=== PATIENT | female | born 1965 | race Caucasian/White ===

== ENCOUNTER 2017-08-16 09:56 | Emergency (ER) | payer MEDICAID ==
--- NOTE | 2017-08-16 12:26 | EDM.PDOC ---
ED HPI GENERAL MEDICAL PROBLEM - General Stated Complaint: RT EYE SWOLLEN Time Seen by Provider: 08/16/17 09:56 Source of Information: Reports: Patient, Family History Limitations: Reports: No Limitations - History of Present Illness INITIAL COMMENTS - FREE TEXT/NARRATIVE: 51 y.o.w.f was seen in the clinic and sent to the ed due to right facial swelling. She was seen last thursday at the clinic for same and received 1 gm of rocephine and was sent home with bactrim. Pt came back to the clinic today for recheck. Pt had a tooth pulled at her left side last week and thinks her symptoms are improving. No N/V/D no Dizziness, no trauma. BP 129/99 pulse 63 Temp 98.1 Pulse ox 99% on RA Onset Date: 08/07/17 Onset Time: 08:00 Duration: Day(s):, Intermittent Location: Reports: Face Quality: Reports: Burning, Dull Severity: Mild Improves with: Reports: None, Medication Worsens with: Reports: Movement Context: Reports: Other (redness of right face) Associated Symptoms: Reports: No Other Symptoms - Related Data Allergies Allergy/AdvReac Type Severity Reaction Status Date / Time No Known Allergies Allergy Verified 08/16/17 12:26 ED ROS GENERAL - Review of Systems Review Of Systems: See Below Constitutional: Reports: No Symptoms HEENT: Reports: No Symptoms Respiratory: Reports: No Symptoms Cardiovascular: Reports: No Symptoms Endocrine: Reports: No Symptoms GI/Abdominal: Reports: No Symptoms : Reports: No Symptoms Musculoskeletal: Reports: No Symptoms Skin: Reports: Rash (right face) Neurological: Reports: No Symptoms Psychiatric: Reports: No Symptoms Hematologic/Lymphatic: Reports: No Symptoms Immunologic: Reports: No Symptoms ED EXAM, SKIN/RASH Exam: See Below Exam Limited By: No Limitations General Appearance: Alert, WD/WN, No Apparent Distress Eye Exam: Bilateral Eye: Normal Inspection Ears: Normal External Exam, Normal Canal Nose: Normal Inspection Throat/Mouth: Normal Inspection, Normal Lips Head: Atraumatic, Normocephalic Neck: Normal Inspection Respiratory/Chest: No Respiratory Distress, Lungs Clear, Normal Breath Sounds, No Accessory Muscle Use Cardiovascular: Normal Peripheral Pulses, Regular Rate, Rhythm, No Edema, No Gallop, No JVD Peripheral Pulses: 1+: Radial (L) GI/Abdominal: Normal Bowel Sounds, Soft, Non-Tender, No Organomegaly, No Abnormal Bruit, No Mass, Pelvis Stable (Female) Exam: Deferred Rectal (Female) Exam: Deferred Back Exam: Normal Inspection, Full Range of Motion Extremities: Normal Inspection, Normal Range of Motion, Non-Tender, No Pedal Edema, Normal Capillary Refill Neurological: Alert, Oriented, CN II-XII Intact, Normal Cognition, Normal Gait, No Motor/Sensory Deficits Characteristics: Erythematous (right face) Lymphatic: No Adenopathy Course - Vital Signs Text/Narrative:: 51 y.o.w.f was seen in the [facility] clinic and sent to the ed due to right facial swelling. She was seen last thursday at the clinic for same and received 1 gm of rocephine and was sent home with bactrim. Pt came back to the clinic today for recheck. Pt had a tooth pulled at her left side last week and thinks her symptoms are improving. No N/V/D no Dizziness, no trauma. BP 129/99 pulse 63 Temp 98.1 Pulse ox 99% on RA PE: 51 y.o.w.f with facial swelling Imaging: Facial cellulitis Labs: Not indicated Impression: Facial Cellulitis Tx: Pt is taking Bactrim Reexam: As per Pt, symptoms have improved Plan: D/C with instructions - Orders/Labs/Meds Orders: Active Orders 24 hr Category Date Time Status Max Facial Sinus wo Cont [CT] Stat Exams 08/16/17 10:15 Taken Departure - Departure Time of Disposition: 12:25 Disposition: Home, Self-Care 01 Condition: Good Clinical Impression: Facial cellulitis - Discharge Information Instructions: Cellulitis, Adult Referrals: Stef Rdz PA-C [Primary Care Provider] - Additional Instructions: Please continue youe current meds, please f/u, come back if your symptoms get worse acutely - My Orders Last 24 Hours: My Active Orders 08/16/17 10:15 Max Facial Sinus wo Cont [CT] Stat - Assessment/Plan Last 24 Hours: My Active Orders 08/16/17 10:15 Max Facial Sinus wo Cont [CT] Stat
== END 2017-08-16 12:33 | disposition home or self-care (01) ==
LOC: FB.ED 09:56
DX: L03.211 Cellulitis of face (principal)
CPT/HCPCS: 70486; 99283

== ENCOUNTER 2018-04-28 15:07 | Emergency (ER) | payer MEDICAID ==
[2018-04-28] MEDS ORDERED: Codeine/guaiFENesin 100mg-10 MG/5 ML Soln 118 ML Bottle PO ONE (15:08)
[2018-04-28] MEDS ORDERED: Albuterol/Ipratropium 3.0-0.5 MG/3 ML Neb Soln NEB ONE (15:20)
[2018-04-28] MEDS ORDERED: predniSONE 20 MG Tab PO ONE (15:23)
--- NOTE | 2018-04-28 15:27 | EDM.PDOC ---
ED HPI GENERAL MEDICAL PROBLEM - General Stated Complaint: SOB Time Seen by Provider: 04/28/18 15:07 Source of Information: Reports: Patient History Limitations: Reports: Respiratory Distress - History of Present Illness INITIAL COMMENTS - FREE TEXT/NARRATIVE: 52 y.o.w.f -smoker- H/O asthma, came to the ed because of non prod cough and SOB. C/P with deep inspirations, No trauma. Pt was exposed to "sick people" in the past few days. No N/V/D or any other acute medical issues. BP 125/77 RR 20 Pulse ox 94% on RA Pulse 81 Temp 36.8 Onset Date: 04/26/18 Onset Time: 10:00 Duration: Getting Worse, Intermittent Location: Reports: Chest Quality: Reports: Dull, Same as Previous Episode Severity: Moderate Improves with: Reports: Rest Worsens with: Reports: Movement Context: Reports: Sick Contact Associated Symptoms: Reports: Cough (with SOB) - Related Data Allergies Allergy/AdvReac Type Severity Reaction Status Date / Time No Known Allergies Allergy Verified 04/28/18 15:16 Home Meds: Home Meds Albuterol [IJD: Albuterol HFA] 1 - 2 puff INH Q4H PRN 08/16/17 [History] Albuterol/Ipratropium [DuoNeb 3.0-0.5 MG/3 ML] 1 ampule INH Q6H PRN 08/16/17 [ History] FLUoxetine HCl [Prozac] 60 mg PO DAILY 08/16/17 [History] Fluticasone/Salmeterol [Advair 250-50] 1 puff INH BID 08/16/17 [History] QUEtiapine [SEROquel] 100 mg PO DAILY 08/16/17 [History] atorvaSTATin [Lipitor] 30 mg PO BEDTIME 08/16/17 [History] buPROPion [Wellbutrin] 75 mg PO BID 08/16/17 [History] lamoTRIgine [Lamictal] 200 mg PO BEDTIME 08/16/17 [History] traZODone HCl [Trazodone HCl] 100 mg PO BEDTIME 08/16/17 [History] Azithromycin [Zithromax] 1 gm PO DAILY 04/28/18 [History] Codeine/guaiFENesin [Robitussin AC] 5 ml PO Q6H PRN #1 bottle 04/28/18 [Rx] predniSONE 20 mg PO WITHBREAKFAST #4 tab 04/28/18 [Rx] predniSONE [Prednisone] 10 mg PO BID 04/28/18 [History] Past Medical History Musculoskeletal History: Reports: Other (See Below) Other Musculoskeletal History: r wrist fx - Past Surgical History HEENT Surgical History: Reports: Tonsillectomy GI Surgical History: Reports: Appendectomy, Other (See Below) Other GI Surgeries/Procedures: bowl obstuction Female Surgical History: Reports: Hysterectomy Social & Family History - Family History Family Medical History: Noncontributory - Caffeine Use Caffeine Use: Reports: Coffee, Tea ED ROS GENERAL - Review of Systems Review Of Systems: See Below Constitutional: Reports: No Symptoms HEENT: Reports: No Symptoms Respiratory: Reports: Shortness of Breath, Pleuritic Chest Pain Cardiovascular: Reports: No Symptoms Endocrine: Reports: No Symptoms GI/Abdominal: Reports: No Symptoms : Reports: No Symptoms Musculoskeletal: Reports: No Symptoms Skin: Reports: No Symptoms Neurological: Reports: No Symptoms Psychiatric: Reports: No Symptoms Hematologic/Lymphatic: Reports: No Symptoms Immunologic: Reports: No Symptoms ED EXAM, GENERAL - Physical Exam Exam: See Below Exam Limited By: Respiratory Distress General Appearance: Alert, WD/WN, Mild Distress, Moderate Distress Eye Exam: Bilateral Eye: Normal Inspection Ears: Normal External Exam Ear Exam: Bilateral Ear: Auricle Normal Nose: Normal Inspection, Normal Mucosa, No Blood Throat/Mouth: Normal Inspection, Normal Lips, Normal Voice, No Airway Compromise Head: Atraumatic, Normocephalic Neck: Normal Inspection, Supple, Non-Tender, Full Range of Motion Respiratory/Chest: Respiratory Distress, Decreased Breath Sounds, Rhonchi, Wheezing Cardiovascular: Normal Peripheral Pulses Peripheral Pulses: 2+: Brachial (L) GI/Abdominal: Normal Bowel Sounds, Soft, Non-Tender, No Organomegaly, No Abnormal Bruit, No Mass, Pelvis Stable (Female) Exam: Deferred Rectal (Female) Exam: Deferred Back Exam: Normal Inspection, Full Range of Motion Extremities: Normal Inspection, Normal Range of Motion, Non-Tender, No Pedal Edema, Normal Capillary Refill Neurological: Alert, Oriented, CN II-XII Intact, Normal Cognition, Normal Gait, No Motor/Sensory Deficits Psychiatric: Normal Affect, Normal Mood Skin Exam: Warm, Dry, Intact, Normal Color, No Rash Lymphatic: No Adenopathy Course - Vital Signs Text/Narrative:: 52 y.o.w.f -smoker- H/O asthma, came to the ed because of non prod cough and SOB. C/P with deep inspirations, No trauma. Pt was exposed to "sick people" in the past few days. No N/V/D or any other acute medical issues. BP 125/77 RR 20 Pulse ox 94% on RA Pulse 81 Temp 36.8 PE: WNWD W F with cold symptoms, expiratory wheezes and a dry cough. Imaging: CXR: NAD labs: CBC: WBC 16.4 BMP: BUN 12, Cr. 1.3 GFR 48 Lactic acid 2.6 Impression: Viral Syndrome, Asthma, chronic bronchitis Tx: Duoneb, Prednison, Codeine cough meds Reexam: Improved Plan: D/C with instructions Last Recorded V/S: Last Vital Signs Temp 36.6 C 04/28/18 17:40 Pulse 66 04/28/18 17:40 Resp 20 04/28/18 17:40 BP 125/71 04/28/18 17:40 Pulse Ox 97 04/28/18 17:40 - Orders/Labs/Meds Orders: Active Orders 24 hr Category Date Time Status Chest 2V [CR] Stat Exams 04/28/18 15:23 Taken Labs: Laboratory Tests 04/28/18 04/28/18 04/28/18 Range/Units 15:40 15:40 15:40 WBC 16.8 H (4.5-12.0) X10-3/uL RBC 4.45 (3.23-5.20) x10(6)uL Hgb 12.9 (11.5-15.5) g/dL Hct 37.8 (30.0-51.3) % MCV 85.0 (80-96) fL MCH 28.9 (27.7-33.6) pg MCHC 34.0 (32.2-35.4) g/dL RDW 14.8 (11.5-15.5) % Plt Count 371 H (125-369) X10(3)uL MPV 8.1 (7.4-10.4) fL Neut % (Auto) 76.0 (46-82) % Lymph % (Auto) 14.8 (13-37) % [place] % (Auto) 7.6 (4-12) % Eos % (Auto) 1 (1.0-5.0) % Baso % (Auto) 1 (0-2) % Neut # (Auto) 12.7 H (1.6-8.3) # Lymph # (Auto) 2.5 (0.6-5.0) # [place] # (Auto) 1.3 (0.0-1.3) # Eos # (Auto) 0.2 (0.0-0.8) # Baso # (Auto) 0.1 (0.0-0.2) # Sodium 135 (135-145) mmol/L Potassium 3.7 (3.5-5.3) mmol/L Chloride 97 L (100-110) mmol/L Carbon Dioxide 22 (21-32) mmol/L BUN 11 (7-18) mg/dL Creatinine 1.3 H (0.55-1.02) mg/dL Est Cr Clr Drug Dosing TNP Estimated GFR (MDRD) 43 L (>60) BUN/Creatinine Ratio 8.5 L (9-20) Glucose 108 (80-116) mg/dL Lactic Acid 2.6 H (0.4-2.2) mmol/L Calcium 9.2 (8.6-10.2) mg/dL Meds: Medications Discontinued Medications Generic Name Dose Route Start Last Admin Trade Name Freq PRN Reason Stop Dose Admin Albuterol/Ipratropium 3 ml 04/28/18 15:20 04/28/18 15:29 Duoneb 3.0-0.5 Mg/3 Ml NEB 04/28/18 15:21 3 ml ONETIME ONE Administration Guaifenesin/Codeine Phosphate 5 ml 04/28/18 16:46 04/28/18 17:23 Robitussin Ac PO 04/28/18 16:47 5 ml ONETIME ONE Administration Prednisone 20 mg 04/28/18 15:23 04/28/18 15:40 Prednisone PO 04/28/18 15:24 20 mg ONETIME ONE Administration Departure - Departure Time of Disposition: 17:37 Disposition: Home, Self-Care 01 Condition: Good Clinical Impression: Asthma, Viral syndrome, Cough in adult - Discharge Information Prescriptions: Codeine/guaiFENesin [Robitussin AC] 5 ml PO Q6H PRN #1 bottle PRN Reason: Cough predniSONE 20 mg PO WITHBREAKFAST #4 tab Referrals: Stef Rdz PA-C [Primary Care Provider] - Forms: ED Department Discharge Additional Instructions: Please keep your body warm, take cough medicine, Motrin for pain, Bendrayl (50 mg) for shivering and as sleep inducer, Albuterol nebs at home and prednisone as recommended. Please follow up, come back if your symptoms get worse acutely - My Orders Last 24 Hours: My Active Orders 04/28/18 15:23 Chest 2V [CR] Stat - Assessment/Plan Last 24 Hours: My Active Orders 04/28/18 15:23 Chest 2V [CR] Stat
[2018-04-28] MEDS ORDERED: Codeine/guaiFENesin 100-10 MG/5 ML Syrup 5 ML Cup PO ONE (16:46)
== END 2018-04-28 17:55 | disposition home or self-care (01) ==
LOC: FB.ED 15:07
DX: J45.909 Unspecified asthma, uncomplicated (principal); B34.9 Viral infection, unspecified; J42 Unspecified chronic bronchitis
CPT/HCPCS: 36415; 71046; 80048; 83605; 85025; 87804; 87807; 94640; 99283; A9270; J7620-GY

== ENCOUNTER 2018-08-04 09:08 | Day surgery (SDC) | payer MEDICAID ==
[2018-08-04] MEDS ORDERED: Propofol 200 MG/20 ML SDV IV ONE (09:09)
[2018-08-04] MEDS ORDERED: Lidocaine 2% 100 MG/5 ML Syringe IVPUSH ONE (09:09)
[2018-08-04] MEDS ORDERED: Lactated Ringers 1,000 ML IV SCH (09:45)
--- NOTE | 2018-08-04 10:39 | PCM.OPNOTE ---
- General Post-Op/Procedure Note Date of Surgery/Procedure: 08/04/18 Operative Procedure(s): egd with bx Findings: gastroduodenitis irregular z line Pre Op Diagnosis: dysphagia Post-Op Diagnosis: gastroduodenitis. irregular z line Primary Surgeon: Ant Jasmine Anesthesia Provider: Preet Bruno Pathology: esophagus, stomach and duodenum Complications: None Condition: Good Free Text/Narrative:: see dictation
--- NOTE | 2018-08-04 17:58 | OR ---
DATE OF OPERATION: 08/04/2018 SURGEON: Ant Jasmine MD PROCEDURE PERFORMED: Esophagogastroduodenoscopy with cold forceps biopsy. PREOPERATIVE DIAGNOSIS: Dysphagia. POSTOPERATIVE DIAGNOSIS: Gastroduodenitis and irregular Z-line. INDICATIONS FOR PROCEDURE: This is a 52-year-old white female referred with the above-mentioned complaints. She was offered and accepted an upper endoscopy. DESCRIPTION OF OPERATION: After an excellent IV sedation was administered, bite block was inserted. Flexible endoscope was passed without difficulty down the patient's esophagus into the stomach. Stomach was insufflated. Scope passed through the pylorus, second portion of the duodenum, and slowly withdrawn. The following findings were noted. First portion of the duodenum demonstrated duodenitis. Biopsies were obtained, photo as well. Stomach, some mild gastritis, especially in the area of the antrum. Biopsies were taken. GE junction measured at approximately 38 cm. There was a slight irregularity to the Z-line noted. Biopsies were taken. Remainder of the esophageal exam was unremarkable. Stomach was deflated. Scope was removed. The patient tolerated the procedure well. Results by letter. /[id number] /[place]
== END 2018-08-04 11:35 | disposition home or self-care (01) ==
LOC: FB.SDS 09:08
PROVIDERS: ATTEND Surgery
DX: K29.50 Unspecified chronic gastritis without bleeding (principal); K22.8 Other specified diseases of esophagus; K21.9 Gastro-esophageal reflux disease without esophagitis; E78.5 Hyperlipidemia, unspecified; J44.9 Chronic obstructive pulmonary disease, unspecified; F31.9 Bipolar disorder, unspecified; F17.210 Nicotine dependence, cigarettes, uncomplicated; G47.33 Obstructive sleep apnea (adult) (pediatric); Z79.1 Long term (current) use of non-steroidal anti-inflammatories (NSAID); Z79.899 Other long term (current) drug therapy
CPT/HCPCS: 43239; 88305; 88342; J2001; J2704; J7120

== ENCOUNTER 2019-07-19 06:26 | Day surgery (SDC) | payer MEDICAID ==
[2019-07-19] MEDS ORDERED: Glycopyrrolate 0.2 MG/ML 5 ML MDV IV ONE (06:27)
[2019-07-19] MEDS ORDERED: Propofol 200 MG/20 ML SDV IV ONE (06:27)
[2019-07-19] MEDS ORDERED: Lidocaine 1% PF 2 ML SDV INJECT ONE (06:27)
[2019-07-19] MEDS ORDERED: Lactated Ringers 1,000 ML IV SCH (06:45)
[2019-07-19] MEDS ORDERED: Sodium Chloride 0.9% 10 ML Syringe FLUSH PRN (06:45)
--- NOTE | 2019-07-19 09:02 | PCM.OPNOTE ---
- General Post-Op/Procedure Note Date of Surgery/Procedure: 07/19/19 Operative Procedure(s): c scope with bx Findings: normal with bx Pre Op Diagnosis: diarrhea possible ibd Post-Op Diagnosis: nl exam Anesthesia Technique: MAC Primary Surgeon: Ant Jasmine Anesthesia Provider: Preet Bruno Pathology: random bx Complications: None Condition: Good Free Text/Narrative:: see dictation
--- NOTE | 2019-07-19 10:39 | OR ---
DATE OF OPERATION: 07/19/2019 SURGEON: Ant Jasmine MD PROCEDURE PERFORMED: Colonoscopy with random biopsies. PREOPERATIVE DIAGNOSIS: History of diarrhea and abnormal CT scan. POSTOPERATIVE DIAGNOSIS: Normal exam. INDICATIONS FOR PROCEDURE: This is a 53-year-old white female who is referred with a history of diarrhea. Apparently, had undergone a CT scan, and there were some CT scan findings suggestive of possible Crohn disease or other inflammatory bowel disease. She was offered and accepted colonoscopy on the basis of this diagnosis. DESCRIPTION OF OPERATION: After an excellent IV sedation was administered, digital rectal exam was performed. No marked abnormality was noted. The flexible colonoscope was inserted and advanced to the cecum, and after identifying the cecum by the usual anatomic landmarks, attempts to intubate the ileocecal valve were not successful. The following findings were noted. Ascending colon unremarkable, random biopsies taken. Transverse colon unremarkable, random biopsies were taken. Descending colon unremarkable, random biopsies were taken. Sigmoid and rectum were unremarkable, random biopsies were taken. The patient tolerated the procedure well. Results will be sent by letter. /[id number] /MODL
== END 2019-07-19 10:00 | disposition home or self-care (01) ==
LOC: FB.SDS 06:26
PROVIDERS: ATTEND Surgery
DX: R19.7 Diarrhea, unspecified (principal); R93.3 Abnormal findings on diagnostic imaging of other parts of digestive tract; K92.2 Gastrointestinal hemorrhage, unspecified; E78.5 Hyperlipidemia, unspecified; Z79.899 Other long term (current) drug therapy; Z91.030 Bee allergy status; Z91.018 Allergy to other foods
CPT/HCPCS: 88305; J2001; J2704; J3490; J7120

== ENCOUNTER 2021-07-24 14:18 | Emergency (ER) | payer MEDICAID ==
[2021-07-24] MEDS ORDERED: Metoclopramide 10 MG/2 ML SDV IVPUSH ONE (14:22)
[2021-07-24] MEDS ORDERED: Alum Hydroxide/Mag Hydroxide 15 ML, Lidocaine 2% 15 ML PO ONE ×2 (14:22)
[2021-07-24] MEDS ORDERED: Prochlorperazine 10 MG in Sodium Chloride 0.9% 50 ML IV STA (15:04)
[2021-07-24] MEDS ORDERED: Iopamidol 755 Mg/ML 100 ML Bottle IV ONE (15:06)
[2021-07-24] MEDS ORDERED: Sodium Chloride 0.9% 1,000 ML IV SCH (15:15)
== END 2021-07-24 17:34 | disposition home or self-care (01) ==
LOC: FB.ED 14:18
DX: K29.70 Gastritis, unspecified, without bleeding (principal); K21.9 Gastro-esophageal reflux disease without esophagitis; I25.10 Atherosclerotic heart disease of native coronary artery without angina pectoris; I25.2 Old myocardial infarction; E78.00 Pure hypercholesterolemia, unspecified; J44.9 Chronic obstructive pulmonary disease, unspecified; Z91.030 Bee allergy status; Z91.018 Allergy to other foods; Z79.899 Other long term (current) drug therapy
CPT/HCPCS: 36415; 74177; 80053; 81001; 82150; 83690; 84484; 85025; 93005; 93010; 96374; 96375; 99283; 99284-25; A9270-GY; J0780; J2765; J3490; J7030; Q9967

== ENCOUNTER 2022-04-20 10:24 | Emergency (ER) | payer MEDICAID ==
[2022-04-20] MEDS ORDERED: Cyclobenzaprine 10 MG Tab PO ONE (10:55)
[2022-04-20] MEDS ORDERED: Ketorolac 30 MG/ML SDV IM ONE (11:47)
== END 2022-04-20 15:20 | disposition home or self-care (01) ==
LOC: FB.ED 10:24
DX: M48.062 Spinal stenosis, lumbar region with neurogenic claudication (principal); M79.7 Fibromyalgia; J44.9 Chronic obstructive pulmonary disease, unspecified; E78.00 Pure hypercholesterolemia, unspecified; Z91.030 Bee allergy status; Z91.018 Allergy to other foods; Z79.899 Other long term (current) drug therapy; Z90.49 Acquired absence of other specified parts of digestive tract; Z90.710 Acquired absence of both cervix and uterus
CPT/HCPCS: 72131; 96372; 99283; A9270; J1885